=== PATIENT | male | born 1940 | race Caucasian/White ===

== ENCOUNTER 2016-12-10 08:00 | Outpatient (CLI) | payer MEDICARE, OTHER ==
[2016-12-10 12:37] LABS: BASOPHILS % (AUTO) 0.6 %; EOSINOPHILS # (AUTO) 0.2 10^3/uL (0.0-0.7); EOSINOPHILS % (AUTO) 2.8 %; HCT - HEMATOCRIT 41.5 % (42.0-52.0); HGB - HEMOGLOBIN 14.3 g/dL (14.0-18.0); LYMPHOCYTES # (AUTO) 1.7 10^3/uL (1.5-3.5); LYMPHOCYTES % (AUTO) 29.6 %; MEAN CORPUSCULAR HEMOGLOBIN 30.7 pg (27.0-31.0); MEAN CORPUSCULAR HGB CONC 34.4 g/dL (32.0-36.0); MEAN CORPUSCULAR VOLUME 89.1 fL (80.0-94.0); MEAN PLATELET VOLUME 8.9 fL (7.4-11.4); MONOCYTES # (AUTO) 0.7 10^3/uL (0.0-1.0); MONOCYTES % (AUTO) 12.6 %; NEUTROPHILS # (AUTO) 3.1 10^3/uL (1.5-6.6); NEUTROPHILS % (AUTO) 54.4 %; NUCLEATED RED BLOOD CELLS AUTO 0.1 /100WBC; RED BLOOD COUNT 4.66 10^6/uL (4.70-6.10); UNCORRECTED WHITE BLOOD COUNT 5.7 x10^3/uL; WHITE BLOOD COUNT 5.7 x10^3/uL (4.8-10.8)
[2016-12-10 12:56] LABS: ALBUMIN/GLOBULIN RATIO 1.6 (1.0-2.2); BILIRUBIN,TOTAL 0.7 mg/dL (0.2-1.0); CALCIUM 9.3 mg/dL (8.5-10.3); CREATININE 1.1 mg/dL (0.6-1.2); POTASSIUM 4.2 mmol/L (3.5-5.0); TOTAL PROTEIN 6.4 g/dL (6.7-8.2)
[2016-12-10 13:12] LABS: FREE T3 2.29 pg/mL (2.5-3.9)
[2016-12-10 13:28] LABS: THYROID STIMULATING HORMONE 0.55 uIU/mL (0.34-5.60)
== END 2016-12-10 08:01 | disposition home or self-care (01) ==
LOC: LAB.WCP 08:00
PROVIDERS: ATTEND Internal Medicine Endocrinology, Diabetes & Metabolism
DX: R53.83 Other fatigue (principal); C73 Malignant neoplasm of thyroid gland; Z12.5 Encounter for screening for malignant neoplasm of prostate; E03.9 Hypothyroidism, unspecified
CPT/HCPCS: 36415; 80053; 84432; 84439; 84443; 84481; 85025; 86800; G0103; 84153

== ENCOUNTER 2017-01-29 08:52 | Outpatient (CLI) | payer MEDICARE, OTHER ==
--- NOTE | 2017-01-29 12:45 | CARDIAC PROCEDURE NOTE ---
DATE OF SERVICE: 01/29/2017 00:00:00 PRIMARY CARE PHYSICIAN: Mannie Cross MD PROCEDURE: Treadmill myocardial perfusion scan. PROCEDURE SYMPTOMS: Acute fatigue. CARDIAC RISK FACTORS: Include age. PREVIOUS CARDIAC PROCEDURES: Include recent ETT. CLINICAL HISTORY: A 76-year-old male without known coronary artery disease. INITIAL RESTING VITAL SIGNS: Blood pressure 136/68, heart rate 70, height 72 inches, weight 196 pounds, BMI 26.7. PROCEDURE AND FINDINGS: The patient's identity and date verified. Consent signed. The patient performed treadmill exercise using a Abel protocol, completing 7 minutes 44 seconds and completing an estimated workload of 10.1 metabolic equivalents. At peak exercise cardiolyte was injected and the patient exercised 60 seconds longer. Maximal blood pressure was 184/72 with a heart rate of 130 beats per minute or 91% of maximum predicted heart rate for age. The blood pressure response to exercise was within normal limits. The patient stopped because of tiring. The resting ECG demonstrated normal sinus rhythm with no abnormality. Maximum ST segment depression was less than 0.5 mm and upsloping. There was rare PVC ectopy. FINAL IMPRESSION 1. Negative stress electrocardiogram for ischemia by electrocardiographic criteria. 2. Negative stress test clinically for angina. 3. Rare premature ventricular contractions. 4. Outperformed predicted time for age. JOB #: [id number] EXT JOB #:[id number]
--- NOTE | 2017-01-29 15:43 | Nuclear Medicine Report ---
EXAM: SINGLE-ISOTOPE EXERCISE STRESS TEST. SINGLE-ISOTOPE AND ONE-DAY REST/STRESS MYOCARDIAL PERFUSION SCAN S WITH TOMOGRAPHIC IMAGING, QUANTITATIVE ANALYSIS, WALL MOTION ANALYSIS AND CALCULATION OF EJECTION F RACTION. EXAM DATE: 01/29/2017 01:38 PM. CLINICAL HISTORY: ACUTE FATIGUE. COMPARISON: None. TECHNIQUE: A rest myocardial perfusion scan was done with tomography after the intravenous administration of 10. 4 mCi Tc-99m sestamibi. After an appropriate delay, a treadmill exercise stress was performed according to department protoco l. The patient exercised for 7 minutes and 44 seconds. The maximum heart rate was 130 bpm, which was 91% of the maximum predicted heart rate of 143 bpm. At approximately peak heart rate, 40.3 mCi of Tc- 99m sestamibi was injected for stress myocardial perfusion scan. Motion correction was applied when a ppropriate. Gated tomographic images were obtained for wall motion analysis and computation of left ventricular e jection fraction. FINDINGS: No convincing fixed or reversible perfusion defects are identified. There is some mild apic al thinning noted. No focal wall motion abnormality. The left ventricular end-diastolic volume is 118 cc. The left ventricular end-systolic volume is 52 c c. The left ventricular ejection fraction is calculated to be 56%. IMPRESSION: 1. No scintigraphic findings to indicate myocardial ischemia. Negative for infarct. 2. Normal left ventricular ejection fraction of 56%. 3. Normal segmental and global wall motion. 4. Normal left ventricular cavity size, no change with stress. [facility] Referring Provider Line: [phone] SITE ID: [id number]
== END 2017-01-29 08:53 | disposition home or self-care (01) ==
LOC: DI 08:52
PROVIDERS: ATTEND Family Medicine
DX: R53.83 Other fatigue (principal)
CPT/HCPCS: 78452; 93017; A9500

== ENCOUNTER 2017-02-03 16:50 | Outpatient (CLI) | payer MEDICARE, OTHER ==
--- NOTE | 2017-02-04 10:14 | Ultrasound Report ---
ULTRASOUND NECK: 02/03/2017 CLINICAL INDICATION: History of thyroid cancer status post thyroidectomy. COMPARISON: 06/12/2011 TECHNIQUE: Real-time scanning was performed with patient admitting representative static images obtained. FINDINGS: The thyroid is surgically absent. No recurrent or residual mass is appreciated in the thy roid bed. A right-sided lymph node is again incidentally noted, measuring 7 x 6 x 3 mm, stable. No adenopathy is seen. IMPRESSION: NORMAL NECK ULTRASOUND. NO EVIDENCE OF RECURRENT OR RESIDUAL MASS IN THE THYROID BED. NO ADENOPATHY. JOB #: [id number] EXT JOB #:[id number]
== END 2017-02-03 16:51 | disposition home or self-care (01) ==
LOC: DI 16:50
PROVIDERS: ATTEND Internal Medicine Endocrinology, Diabetes & Metabolism
DX: C73 Malignant neoplasm of thyroid gland (principal)
CPT/HCPCS: 76536

== ENCOUNTER 2017-12-11 08:00 | Outpatient (CLI) | payer MEDICARE, OTHER ==
[2017-12-11 12:18] LABS: BASOPHILS % (AUTO) 0.5 %; EOSINOPHILS # (AUTO) 0.2 10^3/uL (0.0-0.7); EOSINOPHILS % (AUTO) 2.8 %; HGB - HEMOGLOBIN 14.5 g/dL (14.0-18.0); LYMPHOCYTES # (AUTO) 1.5 10^3/uL (1.5-3.5); LYMPHOCYTES % (AUTO) 24.6 %; MEAN CORPUSCULAR HEMOGLOBIN 31.7 pg (27.0-31.0); MEAN CORPUSCULAR HGB CONC 34.9 g/dL (32.0-36.0); MEAN CORPUSCULAR VOLUME 90.8 fL (80.0-94.0); MEAN PLATELET VOLUME 8.8 fL (7.4-11.4); MONOCYTES # (AUTO) 0.7 10^3/uL (0.0-1.0); MONOCYTES % (AUTO) 11.9 %; NEUTROPHILS # (AUTO) 3.6 10^3/uL (1.5-6.6); NEUTROPHILS % (AUTO) 60.2 %; PLT - PLATELET COUNT 186 10^3/uL (130-450); RED BLOOD COUNT 4.59 10^6/uL (4.70-6.10); RED CELL DISTRIBUTION WIDTH 12.9 % (12.0-15.0)
[2017-12-11 12:58] LABS: ALBUMIN 4.2 g/dL (3.2-5.5); ALBUMIN/GLOBULIN RATIO 1.8 (1.0-2.2); ALKALINE PHOSPHATASE 66 IU/L (42-121); ALT ALANINE AMINOTRANSFERASE 27 IU/L (10-60); AST ASPARTATE AMINOTRANSFERASE 35 IU/L (10-42); BILIRUBIN,TOTAL 1.1 mg/dL (0.2-1.0); BUN - BLOOD UREA NITROGEN 25 mg/dL (6-20); CALCIUM 9.4 mg/dL (8.5-10.3); CARBON DIOXIDE - CO2 27 mmol/L (21-32); CHLORIDE 106 mmol/L (101-111); CHOL/HDL RATIO 2.7 (<5.0); CHOLESTEROL 171 mg/dL; CREATININE 1.2 mg/dL (0.6-1.2); GFR - MDRD 59 (>89); GLUCOSE 100 mg/dL (70-100); HDL CHOLESTEROL 64 mg/dL; LDL CHOLESTEROL,CALCULATED 95 mg/dL; LDL/HDL RATIO 1.5 (<3.6); SODIUM 139 mmol/L (135-145); TOTAL PROTEIN 6.6 g/dL (6.7-8.2); VLDL CHOLESTEROL 12 mg/dL
== END 2017-12-11 08:01 | disposition home or self-care (01) ==
LOC: LAB.WCP 08:00
PROVIDERS: ATTEND Family Medicine
DX: R00.1 Bradycardia, unspecified (principal); E03.9 Hypothyroidism, unspecified; Z12.5 Encounter for screening for malignant neoplasm of prostate; Z79.899 Other long term (current) drug therapy
CPT/HCPCS: 36415; 80053; 80061; 84443; 85025; G0103; 83721; 84153

== ENCOUNTER 2018-04-01 16:43 | Outpatient (CLI) | payer MEDICARE, OTHER | END 2018-04-01 16:44 | disposition home or self-care (01) | LOC: DI 16:43 | PROVIDERS: ATTEND Internal Medicine Endocrinology, Diabetes & Metabolism | DX: C73 Malignant neoplasm of thyroid gland (principal); E89.0 Postprocedural hypothyroidism | CPT/HCPCS: 76536 ==

== ENCOUNTER 2018-12-22 08:36 | Outpatient (CLI) | payer MEDICARE, OTHER ==
[2018-12-22 12:01] LABS: BASOPHILS % (AUTO) 0.5 %; EOSINOPHILS # (AUTO) 0.1 10^3/uL (0.0-0.7); EOSINOPHILS % (AUTO) 1.6 %; HGB - HEMOGLOBIN 14.3 g/dL (14.0-18.0); LYMPHOCYTES # (AUTO) 1.5 10^3/uL (1.5-3.5); LYMPHOCYTES % (AUTO) 27.3 %; MEAN CORPUSCULAR HEMOGLOBIN 31.8 pg (27.0-31.0); MEAN CORPUSCULAR HGB CONC 34.4 g/dL (32.0-36.0); MEAN CORPUSCULAR VOLUME 92.7 fL (80.0-94.0); MEAN PLATELET VOLUME 10.8 fL (7.4-11.4); MONOCYTES # (AUTO) 0.6 10^3/uL (0.0-1.0); MONOCYTES % (AUTO) 10.8 %; NEUTROPHILS # (AUTO) 3.3 10^3/uL (1.5-6.6); NEUTROPHILS % (AUTO) 59.6 %; PLT - PLATELET COUNT 180 10^3/uL (130-450); RED BLOOD COUNT 4.49 10^6/uL (4.70-6.10); RED CELL DISTRIBUTION WIDTH 12.3 % (12.0-15.0); WHITE BLOOD COUNT 5.6 x10^3/uL (4.8-10.8)
[2018-12-22 12:53] LABS: ALBUMIN 3.9 g/dL (3.2-5.5); ALBUMIN/GLOBULIN RATIO 1.4 (1.0-2.2); ALKALINE PHOSPHATASE 60 IU/L (42-121); ALT ALANINE AMINOTRANSFERASE 17 IU/L (10-60); AST ASPARTATE AMINOTRANSFERASE 25 IU/L (10-42); BILIRUBIN,TOTAL 0.7 mg/dL (0.2-1.0); BUN - BLOOD UREA NITROGEN 23 mg/dL (6-20); CALCIUM 9.1 mg/dL (8.5-10.3); CARBON DIOXIDE - CO2 25 mmol/L (21-32); CHLORIDE 105 mmol/L (101-111); CHOL/HDL RATIO 3.2 (<5.0); CHOLESTEROL 165 mg/dL; CREATININE 1.1 mg/dL (0.6-1.2); GFR - MDRD 65 (>89); GLUCOSE 119 mg/dL (70-100); HDL CHOLESTEROL 52 mg/dL; LDL CHOLESTEROL,CALCULATED 100 mg/dL; LDL/HDL RATIO 1.9 (<3.6); SODIUM 137 mmol/L (135-145); TOTAL PROTEIN 6.6 g/dL (6.7-8.2); VLDL CHOLESTEROL 13 mg/dL
== END 2018-12-22 23:59 | disposition home or self-care (01) ==
LOC: LAB.WCP 08:36
PROVIDERS: ATTEND Family Medicine
DX: R00.1 Bradycardia, unspecified (principal); E03.9 Hypothyroidism, unspecified; N40.0 Benign prostatic hyperplasia without lower urinary tract symptoms
CPT/HCPCS: 36415; 80053; 80061; 83721; 84153; 84443; 85025

== ENCOUNTER 2020-09-18 13:35 | Outpatient (CLI) | payer MEDICARE, OTHER ==
--- NOTE | 2020-09-18 16:51 | Ultrasound Report ---
PROCEDURE: Head or Neck Soft Tissue INDICATIONS: THYROID CA TECHNIQUE: Real-time scanning was performed of the thyroid gland, with image documentation. COMPARISON: Thyroid ultrasound 04/01/2018, 02/03/2017 FINDINGS: Thyroid gland has been removed. It is noted that there is no abnormality within the surgical bed. There are multiple bilateral lymph nodes identified. There are not considered enlarged by pathologic size criteria. However, they are numerous. Most appear to retain presence of fatty hilum. However, ri ght sided lymph node designated lymph node 2 measuring 11 x 3 x 8 mm is somewhat more homogeneous wit hout clearly identified fatty hilum. It is noted that these lymph nodes are new compared to prior exa m. IMPRESSION: 1. Multiple new subcentimeter lymph nodes within the neck as above. These are not visualized on prior exam. It is noted that while the majority retained fatty hilum, a single right-sided node is somewha t indeterminate in appearance. All the lymph nodes are subcentimeter, they could be reactive in natur e. Six-week ultrasound or CT neck follow-up is recommended for further evaluation. Reviewed by: Roxanne Miguel MD on 09/18/2020 4:49 PM PDT Approved by: Roxanne Miguel MD on 09/18/2020 4:49 PM PDT Station ID: [id number]
== END 2020-09-18 13:36 | disposition home or self-care (01) ==
LOC: DI 13:35
PROVIDERS: ATTEND Internal Medicine Endocrinology, Diabetes & Metabolism
DX: C73 Malignant neoplasm of thyroid gland (principal); E89.0 Postprocedural hypothyroidism

== ENCOUNTER 2021-02-15 15:07 | Outpatient (CLI) | payer MEDICARE, OTHER ==
--- NOTE | 2021-02-15 16:54 | Ultrasound Report ---
PROCEDURE: Head or Neck Soft Tissue INDICATIONS: HYPOTHYROIDISM, THYROID CA TECHNIQUE: Real time scanning was performed of the neck region of interest, with image documentation . COMPARISON: None. FINDINGS: Status post thyroidectomy. No recurrent mass is seen in the thyroid bed. Small bilateral cervical lym ph nodes are measuring up to 8 x 3 mm on the right and 5 x 3 mm on the left. These appear slightly le ss prominent when compared to the prior ultrasound from 09/18/2020. IMPRESSION: 1.Status post thyroidectomy. No recurrent thyroid mass. 2.Small bilateral cervical lymph nodes appear less prominent when compared to the ultrasound from 09/01. Reviewed by: Anant Muller MD on 02/15/2021 4:53 PM PDT Approved by: Anant Muller MD on 02/15/2021 4:53 PM PDT Station ID: [id number]
== END 2021-02-15 15:08 | disposition home or self-care (01) ==
LOC: DI 15:07
PROVIDERS: ATTEND Internal Medicine Endocrinology, Diabetes & Metabolism
DX: E89.0 Postprocedural hypothyroidism (principal); Z85.850 Personal history of malignant neoplasm of thyroid

== ENCOUNTER 2021-07-04 13:29 | Outpatient (CLI) | payer MEDICARE, OTHER ==
--- NOTE | 2021-07-04 16:54 | Ultrasound Report ---
PROCEDURE: Head or Neck Soft Tissue INDICATIONS: POSTOPERATIVE HYPOTHYROIDISM TECHNIQUE: Real time scanning was performed of the neck region of interest, with image documentation . COMPARISON: Ultrasound 02/15/2021, 09/18/2020. FINDINGS: Status post thyroidectomy. No recurrent mass is seen in the thyroid bed. Numerous small lymph nodes a re seen in the neck bilaterally with normal morphology. These measure 3 to 5 mm in short axis diamete r bilaterally. Findings do not appear significantly changed when compared to the prior ultrasound fro m 02/15/2021. IMPRESSION: 1.Status post thyroidectomy. No recurrent mass is seen in the thyroid bed. 2.Bilateral small normal-appearing cervical lymph nodes do not appear significantly changed when comp ared to the ultrasound from 02/15/2021. Reviewed by: Anant Muller MD on 07/04/2021 4:53 PM PST Approved by: Anant Muller MD on 07/04/2021 4:53 PM PST Station ID: [id number]
== END 2021-07-04 13:30 | disposition home or self-care (01) ==
LOC: DI 13:29
PROVIDERS: ATTEND Internal Medicine Endocrinology, Diabetes & Metabolism
DX: E89.0 Postprocedural hypothyroidism (principal); Z85.850 Personal history of malignant neoplasm of thyroid

== ENCOUNTER 2022-01-20 15:23 | Outpatient (CLI) | payer MEDICARE, OTHER ==
--- NOTE | 2022-01-21 17:00 | Ultrasound Report ---
PROCEDURE: Head or Neck Soft Tissue INDICATIONS: THYROID CA TECHNIQUE: Real time scanning was performed of the neck region of interest, with image documentation . COMPARISON: None. FINDINGS: No soft tissue neck abnormality seen bilaterally. The thyroid is surgically absent. Normal appearing bilateral cervical lymph nodes are present. IMPRESSION: Postsurgical sequelae. No evidence of recurrent thyroid carcinoma by ultrasound. Reviewed by: Jabier Interiano MD on 01/21/2022 4:59 PM PDT Approved by: Jabier Interiano MD on 01/21/2022 4:59 PM PDT Station ID: [id number]
== END 2022-01-20 15:24 | disposition home or self-care (01) ==
LOC: DI 15:23
PROVIDERS: ATTEND Internal Medicine Endocrinology, Diabetes & Metabolism
DX: E89.0 Postprocedural hypothyroidism (principal); Z85.850 Personal history of malignant neoplasm of thyroid

== ENCOUNTER 2022-10-30 07:01 | Outpatient (CLI) | payer MEDICARE, OTHER ==
--- NOTE | 2022-10-30 14:24 | Ultrasound Report ---
PROCEDURE: Head or Neck Soft Tissue INDICATIONS: HIST OF THYROID CA TECHNIQUE: Real-time scanning was performed of the thyroid gland, with image documentation. COMPARISON: 01/20/2022 FINDINGS: Right: Surgically absent Left: Surgically absent No evidence of recurrent residual mass lesion in thyroid bed. Scattered right-sided normal-appearing lymph nodes all measure less than 1 cm. No evidence of adenopathy IMPRESSION: Unremarkable ultrasound of the neck status post thyroidectomy Reviewed by: Marlon Yusuf MD on 10/30/2022 1:23 PM [facility] Approved by: Marlon Yusuf MD on 10/30/2022 1:23 PM [facility] Station ID: [id number]
== END 2022-10-30 07:02 | disposition home or self-care (01) ==
LOC: DI 07:01
PROVIDERS: ATTEND Internal Medicine Endocrinology, Diabetes & Metabolism
DX: Z85.850 Personal history of malignant neoplasm of thyroid (principal); C73 Malignant neoplasm of thyroid gland
CPT/HCPCS: 36415; 81599; 84443